=== PATIENT | female | born 1975 | race Caucasian/White ===

== ENCOUNTER 2017-01-14 03:35 | Emergency (ER) | payer OTHER ==
[~2017-01-14] VITALS: Ht 167.6 cm; Wt 45.4 kg
--- NOTE | ~2017-01-14 | CT71 ---
[facility] A Service of [facility] & [facility] RADIOLOGY TEXT RESULTS PATIENT: DAMARI THOMPSON LOCATION: [facility] : 73 UNIT #: [id number] AGE: [address]: Ciro Resendiz MD SEX: F ORDER DR: [id number] [facility] [address] [place], [place] [address] [id number] E MR#: [id number] Acc #: [id number] NAME: DAMARI THOMPSON : 1975 SEX: F STUDY DATE/TIME: 01/14/2017 04:35 UNIT: [facility] ROOM: STUDY DESCRIPTION: CT Head Wo Contrast Attending Physician: Ciro Resendiz M.D. Ordering Physician: Ciro Resendiz M.D. Primary Care Physician: Valentina Wade M.D. MEDICAL IMAGING REPORT This report is preliminary unless electronic signature is present EXAM Head CT 01/14 at 04:35 INDICATION Headache and nausea for 3 days. COMPARISON 03/13/2015. FINDINGS This CT examination was performed with one or more of the following radiation dose reduction techniques: automatic exposure control, adjustment of mA and/or kV according to patient size, and iterative reconstruction. Ventricular size and configuration remain normal. No acute infarct or hemorrhage is seen. There are no masses. No skull fracture. 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 IMPRESSION No acute findings. No change from prior. Dictated by... Burak Schroeder Jr., M.D. THIS IS AN ELECTRONICALLY VERIFIED REPORT Burak Schroeder Jr., M.D. at 01/15/2017 12:52 AM RITESH/reginald TD: 01/14/2017 09:58 JOB #: [id number] MEDICAL IMAGING REPORT Page 1 of 1 COPY
[~2017-01-14 03:35] MED LIST: AMBIEN10 MG PO; ANEXSIA 5/325 M1 TA1 PO; ATENOLOL25 MG PO; DILANTIN PO; LEXAPRO20 MG PO; XANAX2 MG PO
== END 2017-01-14 05:31 | disposition home or self-care (01) ==
LOC: CED 03:35
DX: R51 Headache (principal); F41.9 Anxiety disorder, unspecified; F17.200 Nicotine dependence, unspecified, uncomplicated; Z88.8 Allergy status to other drugs, medicaments and biological substances
CPT/HCPCS: 70450; 96372; 99284; J1885